=== PATIENT | male | born 1975 | race Asian ===

== ENCOUNTER → 2017-05-30 | Outpatient (CLI) | payer OTHER | LOC: FIMAGING 08:04 | PROVIDERS: ATTEND Internal Medicine | DX: E05.90 Thyrotoxicosis, unspecified without thyrotoxic crisis or storm (principal) | CPT/HCPCS: 78012; A9516 ==

== ENCOUNTER 2018-01-04 16:25 | Inpatient (IN) | payer OTHER ==
[2018-01-04] MEDS ORDERED: OLANZapine DISINTEGR 5 MG TAB PO ONE (16:57)
--- NOTE | 2018-01-04 17:14 | EDPHY ---
H & P Stated Complaint: hearing voices. off of meds Source: Patient, Family (), RN/MD Exam Limitations: Clinical condition - Personal History Current Tetanus/Diphtheria Vaccine: Unsure Current Tetanus Diphtheria and Acellular Pertussis (TDAP): Unsure - Medical/Surgical History Hx Asthma: No Hx Chronic Respiratory Disease: No Hx Diabetes: No Hx Cardiac Disease: No Hx Renal Disease: No Hx Cirrhosis: No Hx Alcoholism: No Hx HIV/AIDS: No Hx Splenectomy or Spleen Trauma: No Other PMH: schizophrenia, hypothyroid - Social History Smoking Status: Never smoked Time Seen by Provider: 01/04/18 16:57 HPI/ROS: HPI: This is a 42-year-old male who presents with Chief Complaint: hearing voices. off of meds Location: psych Quality: Psychosis Duration: Unknown Signs and Symptoms: +auditory hallucinations, no visual hallucinations, no suicidal ideation with a plan, no homicidal ideation, + paranoia Timing: Acute on chronic Severity: Severe Context: Patient has a history of schizophrenia, presents at the urging of his psychiatrist, Dr. Dale Bryan, reports that patient is psychotic and patient believes that people are living inside of in trying to control is mine. Had been on Risperdal in the past. Patient reports that he is hearing voices that are telling him what to do. He believes that they are living inside of him and controlling his mind and body. Denies drug, alcohol, tobacco use. Modifying Factors: None Comment: ROS: A comprehensive 10 system review of systems is otherwise negative aside from elements mentioned in the history of present illness. MEDICAL/SURGICAL/SOCIAL HISTORY: Medical history: Schizophrenia hypothyroidism Surgical history: Denies Social history: Never smoked. with children. Family history noncontributory. CONSTITUTIONAL: Untidy, malodorous, [place] male, awake and alert, no obvious distress HEENT: Atraumatic and normocephalic, PERRL, EOMI. Nares patent; no rhinorrhea; no nasal mucosal edema. Tympanic membranes clear. Oropharynx clear, no exudate and moist pink mucosa. Airway patent. No lymphadenopathy. No meningismus. Cardiovascular: Normal S1/S2, regular rate, regular rhythm, without murmur rub or gallop. PULMONARY/CHEST: Symmetrical and nontender. Clear to auscultation bilaterally. Good air movement. No accessory muscle usage. ABDOMEN: Soft, nondistended, nontender, no rebound, no guarding, no peritoneal signs, no masses or organomegaly. No CVAT. EXTREMITIES: 2/2 pulses, strength 5/5, no deformities, no clubbing, no cyanosis or edema. NEUROLOGICAL: no focal neuro deficits. GCS 15. SKIN: Warm and dry, no erythema. no rash. Good capillary refill. PSYCH: Fair eye contact, + flight of ideas, tangential disorganized thought process, poor insight and judgment, +auditory hallucinations, no visual hallucinations, no suicidal ideation with a plan, no homicidal ideation, + paranoia (Donna Hicks) Constitutional: Initial Vital Signs Temperature (C) 36.9 C 01/04/18 16:46 Heart Rate 82 01/04/18 16:46 Respiratory Rate 16 01/04/18 16:46 Blood Pressure 132/92 H 01/04/18 16:46 O2 Sat (%) 95 01/04/18 16:46 O2 Delivery Mode Room Air Allergies/Adverse Reactions: No Known Allergies Allergy (Unverified 01/04/18 16:46) Home Medications: Medication Instructions Recorded Levothyroxine 01/04/18 Medical Decision Making ED Course/Re-evaluation: 1715: Placed on M1 as patient is gravely disabled secondary to psychosis. Labs and UDS ordered. Given Zyprexa 5 mg. I believe patient needs inpatient psychiatric hospitalization and medication stabilization. Psychiatrist cell phone is [phone]. 1745: Labs reviewed and grossly unremarkable. Urine drug screen negative. Medically clear for mental health evaluation. 2145: Notified by [facility] that they will evaluate the patient in the a.m. 0000: End of shift. Signed over to Dr. Adler pending mental health evaluation in the morning. This patient was seen under the supervision of my secondary supervising physician. I evaluated care for this patient independently. Discussed this patient with Dr. Sotelo. (Donna Hicks) 0700: No acute events overnight. Patient signed over to Dr. Manning, 7:00 a.m. Shift change. Patient on M1 home. Acute psychosis, schizophrenic and off his medications. (Matt Adler) 0 700: Patient is signed out to me at change of shift by Dr. Adler. The patient is awaiting evaluation. Patient is stable. 835: The patient's evaluation is complete. Patient will be transferred to [address] [place] [address] Dr. Lee is accepting. (Ksenia Owen) Differential Diagnosis: Differential diagnosis includes but is not to schizophrenia, psychosis, bernard, bipolar disorder, intoxicant use. (Donna Hicks) - Data Points Laboratory Results: Laboratory Results 01/04/18 17:10 01/04/18 17:10 Medications Given: Discontinued Medications Olanzapine (Zyprexa Zydis) 5 mg PO EDNOW ONE Stop: 01/04/18 16:58 Last Admin: 01/04/18 17:29 Dose: 5 mg Departure - Departure Disposition: [facility] IP Clinical Impression: Schizo-affective psychosis Qualifiers: Schizoaffective disorder type: unspecified Qualified Code(s): F25.9 - Schizoaffective disorder, unspecified Condition: Fair Referrals: [facility] [Other] - As per Instructions
[2018-01-04 17:23] LABS: PLATELET COUNT 302 10^3/uL (150-400)
--- NOTE | 2018-01-05 07:28 | ASMTTCLDSP ---
[facility] Discharge Disposition Disposition: Answers: Admit Disposition Notes: Notes: Admit 3N. Discharge Concerns/Recommendations: Notes: In consultation with [facility] ED physician, Ksenia Owen MD and on-call psychiatrist, Bar Reese MD, both concurred that pt appears to meet 27-65 criteria requiring psychiatric hospitalization as pt appears to gravely disabled due to a mental illness condition. Pt was given the 3N prohibited belongings list while in the ED. Was patient given the Answers: Yes Inpatient Behavioral Health Prohibited Belongings List while in the ED? For inpatient Bar Reese MD admission, the following psychiatrist agreed to accept patient for admission to Behavioral Health ([facility]): Type of Hold: Answers: M1/72-hour Hold Hold initiated by: Answers: ED Physician Date Signed: 01/05/2018 07:28 AM Electronically Signed By:Elvin Hsieh
--- NOTE | 2018-01-05 07:28 | ASMTTLCEVL ---
[facility] Evaluation - Basic Information Evaluation Start Date and 01/05/2018 06:10 AM Time Hospital Status Answers: M1 Hold 72-hr M1 Hold Start Date 01/04/2018 05:15 PM and Time Patient statement Notes: Im thinking I am in heaven. I have people inside of me and they are telling me what to do. Narrative Notes: Pt is a 42 yo, , employed, Danish male with history of schizophrenia, initially self-presented to [facility] ED at the recommendation of his psychiatrist, Dr. Dale Bryan due to pt having auditory hallucinations and believing he has people inside of him that are telling him what to do. Pt was placed on M1 hold by ED provider which noted: Patient has a history of schizophrenia presents at the urging of his psychiatrist for medication non-compliance, psychosis, audio hallucinations. Patient believes he has people living inside his body controlling him. Patient is gravely disabled. Pt appeared unclean, disheveled and unkempt. He endorsed having auditory hallucinations and hearing voices from people he believes are inside his body, telling him what to do. Pt has been in [place] for the past 8 years. He grew up in [facility] [place] [facility]. He reported taking medications when he was in [facility], which suggests he has had schizophrenia for at least 8-9 years. He appeared to have thought blocking at times with occasional response delays, and at times appeared to have pressured speech. Pt denied having thoughts/desires to harm himself, however, on item 9 from the BDI, pt indicated having thoughts of suicide but would not act upon those thoughts. He endorsed feeling distress from hearing the voices. Diagnosis History Notes: Schizophrenia. Prior suicide attempts Notes: Pt denied any past history of suicide attempts. Prior hospitalizations Notes: Pt denied any previous history of psychiatric hospitalizations. Treatment Responses Notes: Referred by outpatient psychiatrist for medication non-compliance, hearing voices, has history of schizophrenia. History of violence Notes: Pt denied any history of aggression/violence. Therapist: None. Psychiatrist: Dr. Dale Bryan. Medications (name, dosage, route, freq uency) Notes: None. Pt reportedly had been taking Risperdal in the past. Pt stated he took medications when he was in [facility]. Pt was administered Zyprexa Zydis 5 mg po at 1729 hrs. Allergies/Reaction Notes: NKDA. Sleep Notes: Pt reported he typically gets 8 hours of sleep per night. Appetite Notes: Pt reported that his appetite is good. Medical/Surgical history Notes: Noncontributory. Substance use history (frequency, intensity, his tory, duration) Notes: Noncontributory. Pt denied any history of alcohol, marijuana or other illicit substance use. BAL zero. UDS results were negative for all tested substances. Family composition Notes: Parents reside in [facility] [place] [facility]. He has a sister also living in [place] [facility] [place] [facility]. He reported he has a brother who lives in [place]. Need for family Answers: Yes participation in patient's care Family psychiatric/substance abuse history Notes: None reported. Developmental history Notes: Pt reported being born and raised in [place] [place] [facility]. He moved to the [facility] about 8 years ago. He denied any childhood history of TBIs, LOC or concussions. He denied any childhood history of physical, emotional or sexual abuse/trauma. Abuse concerns Answers: None Marital status/children Notes: Pt is to his , Jane [phone] for the past 10 years. They have two daughters, ages 3 and 8 yo. Living situation Notes: Pt resides with and two daughters in an apartment in [place]. Sexual history/orientation Notes: Not active. Heterosexual. Peer support/family strengths Notes: Pt identified that his and brother are his supports. Education level/history Notes: Pt reported obtaining a bachelors degree in sociology from [facility] [employer] in 2002. 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 Notes: None. Legal Notes: Pt denied any arrest/legal history. Holiness/Spiritual Notes: Pt reported he is Caodaism. Leisure Notes: Pt reported he enjoys the internet. Collateral Notes: , Jane. Patient's strengths Answers: Honest (Please select at least TWO strengths): Motivated for Treatment Supportive Family Willingness [facility] Evaluation - Mental Status Exam Appearance: Answers: Unclean Unkempt Disheveled Eye Contact: Answers: Good/Direct Mood: Answers: Depressed Sad Affect: Answers: Calm Congruent w/ Mood Distracted Nervous Sad Behavior: Answers: Cooperative Anxious Passive Restless Suspicious Wandering Speech: Answers: Illogical Unclear Coherent Delayed Dramatic Perseverating Pressured Rapid Thought Process: Answers: Disorganized Oriented Alert Distracted Flight of Ideas Loose Associations Insight: Answers: Fair Judgement: Answers: Fair Manic Signs/Symptoms Answers: Distractibility Pressured Speech Depression Answers: Difficulty Concentrating Signs/Symptoms: Diminished Interest Diminished Pleasure Psychomotor Agitation Sad Mood Hallucinations: Answers: Auditory Delusions: Answers: Being Controlled Current Stage of Change Answers: Contemplation Pt reported to have Answers: No suicidal/self-injuring ideation/behavior? Pt reported to be making Answers: No suicidal/self-injuring threats? Pt reported to have Answers: No aggression/assault ideation/behavior? Pt reported to be making Answers: No aggression/assault threats? Pt exhibits inability to Answers: Yes care for self/grave disability? Ideation/behavior is Answers: Yes chronic? Patient has a specific Answers: No plan? Pt has access to means to Answers: No execute the plan? Ideation involves Answers: No serious/lethal intent? Ideation has Answers: Yes delusional/hallucinatory content? History of Answers: No suicidal/self-injuring ideation, behavior, or threats? History of Answers: No aggressive/assaultive ideation, behavior, or threats? History of serious Answers: No physical harm to self/others while in treatment setting? [facility] Evaluation - Suicide/Homicide Risk Suicide Risk Factors: Answers: < 20 or > 40 Years of Age Anhedonia Command Hallucinations Inadequate Social Support Lack of Social Support Psychotic Disorder Schizophrenia Homicide/violence risk Answers: Command Hallucinations factors: Current Suicidal Answers: No Ideation? Current Suicidal Ideation Answers: No in the Past 48 Hours? Current Suicidal Ideation Answers: No in the Past Month? Current Suicidal Answers: No Ideation, Worst Ever? Suicide Internal Answers: Purvi with Stress Protective Factors: Holiness Beliefs Suicide External Answers: Responsibility to Protective Factors: Children Ranking of patient's Answers: Low suicidal risk: Ranking of patient's Answers: Low homicidal risk: [facility] Evaluation - Wrap-up BDI Total Score: 40 BDI Question #2 Score: 3 BDI Question #9 Score: 1 BSS Total Score: 20 AXIS I Diagnosis (include DSM-V and ICD-10 codes), must also be entered in [employer], which is the source of truth. Notes: In consultation with [facility] ED physician, Ksenia Owen MD and on-call psychiatrist, Bar Reese MD, both concurred that pt appears to meet 27-65 criteria requiring psychiatric hospitalization as pt appears to gravely disabled due to a mental illness condition. Pt was given the 3N prohibited belongings list while in the ED. Evaluation End Date and 01/05/2018 07:25 AM Time (HH:MADELINE): Date Signed: 01/05/2018 07:27 AM Electronically Signed By:Elvin Hsieh
--- NOTE | 2018-01-05 09:21 | GCON ---
DATE OF CONSULTATION: 01/05/2018 REFERRING PHYSICIAN: Joshua Lala MD REASON FOR CONSULTATION: Medical evaluation. PRIMARY PSYCHIATRIST: Dr. Nobles in [facility]. HISTORY OF PRESENT ILLNESS: A 42-year-old Japanese speaking male with schizophrenia diagnosed 3 years ago. At that time, he says "a power took over me and controlled all my thoughts". He was started on medications for 2 years and doing very well. He has tried contacting his psychiatrist in [place] [facility] without success, thus been off psychiatric medications for 3 months. The other night, he had a dream that someone was choking him and making him fly. No suicidal or homicidal ideations. He has not slept for 5 days. He has had normal p.o. intake. c/o of some nausea yesterday, but resolved. states that his psychiatric medications made him very tired and elevated his thyroid function tests. REVIEW OF SYSTEMS: I completed a 10-point review of systems, negative, except as in HPI. PAST MEDICAL HISTORY: Schizophrenia, thyroiditis, secondary to psych medications, thyroiditis uptake scan in May 2017 PAST SURGICAL HISTORY: None. SOCIAL HISTORY: Lives with his and 2 kids. He is from [place], has been here for 8 years. 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 FAMILY HISTORY: His parents are alive [facility] and healthy. HOME MEDICATIONS: Levothyroxine. ALLERGIES: None. PHYSICAL EXAMINATION: VITAL SIGNS: Temperature 36.8, blood pressure 125/85, heart rate in 70s, respirations 16, 97% on room air. GENERAL: He is unkempt, mildly disheveled. HEENT: PERRLA. Moist mucous membranes. CV: Regular rate and rhythm. LUNGS: Clear. ABDOMEN: Soft, nontender. : No Chin. MUSCULOSKELETAL: 5/5 upper and lower extremity strength. NEURO: 2 through 12 intact. PSYCH: Alert and oriented x3. Pressured speech. SKIN: Warm, dry. No rash. LABORATORY DATA: WBC 12, hemoglobin 16, hematocrit 44, platelets 302. U-tox is negative. Sodium 139, potassium 3.4, chloride 103, carbon dioxide 22, BUN is 8, creatinine 0.8, glucose is 128. Labs 09/12/2017 show TSH less than 0.015 , repeat in November of 6.560. ASSESSMENT/PLAN: 1. Schizophrenia with acute psychosis: from medication noncompliance: transfer to Behavioral Health to be managed by psychiatric team. concerned about psychiatric medications affecting his sleep, as well as thyroid function. 2. Leukocytosis: mild, denies infectious symptoms. Afebrile. Suspect stress reaction. 3. History of thyroiditis: TSH is now 6.5 with a normal free T4 in November. Levothyroxine. 4. Diet: Regular. 5. Deep venous thrombosis prophylaxis: Ambulating. Thank you for this consultation. Please call if any questions. /[id number]/MODL MTDD
--- NOTE | 2018-01-05 13:38 | ASMTBHMTP ---
Master Treatment Plan Master Treatment Plan Answers: Impaired Reality for: Date: 01/05/2018 Diagnosis on Admission: Schizophrenia 295.90 Expected length of stay: 3-5 Days Reason for admission: Notes: Per [facility] evaluation - Pt. is a 42 year old, , employed, Greek male with history of schizophrenia, initially self-presented to [facility] ED at the recommendation of his psychiatrist, Dr. Dale Bryan due to pt. having auditory hallucinations and believe he has people inside of him that are telling him what to do. Pt. was placed on M1 hold by ED provider which noted: Patient has a history of schizophrenia presents at the urging of his psychiatrist for medication non-complinace, psychosis, audio hallucinations. Patient believes he has people living inside his body controlling him. Patient is gravely disabled. Pt. appeared unclean, disheveled, and unkempt. He endorsed having auditory hallucinations and hearing voices from people he believes are inside his body, telling him what to do. Patient's stated presenting problems: Notes: An entity is controlling him from inside his body, telling him what to do. Patient's goals for treatment: Notes: None Patient's strengths: Notes: Everything's good Identify supports outside of hospital: Notes: Discharge criteria: Notes: Psychotic symptoms will be reduced or eliminated with return to baseline functioning in affect, thinking and behavior prior to discharge. 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 Master Treatment Plan Required Signatures Psychiatrist signature: Answers: Psychiatrist: RN on-shift signature: Answers: RN: Patient signature: Answers: Patient: Date Signed: 01/05/2018 01:37 PM Electronically Signed By:Rafaela Licona
--- NOTE | 2018-01-05 17:23 | BAPA ---
DATE OF SERVICE: 01/05/2018 CHIEF COMPLAINT: "I just need to see a farm specialist about what is going on." HISTORY OF PRESENT ILLNESS: Patient is a 42-year-old [place] man who presented to the emergency dep artment with his family due to worsening psychotic symptoms. He has a history of schizophrenia and a pparently had taken some form of medication prescribed by a psychiatrist in [facility] for the past 3 year s. He states he ran out and was unable to get this refilled in the [place] and stopped taking the medic ation about a month ago. He cannot remember the name of this and his also does not know the nam e. He states it is a standard prescription medicine and not something like an herb or local concocti on. He states that his symptoms began sometime in the past, but that he has been consistently treate d for them for the past 3 years. He states that during that time he has had no problems. His primar y symptoms are persistent auditory hallucinations where he will hear commanding voices telling him "b oth good things and bad things." He states that there is one voice that will "tell me I am the best, and I am the most powerful" and another voice that "tells me I should just ." He states also franki t he has a feeling of increased energy, "like an electrical current surging through my body." He sta anita that this has been worsening recently and that he feels like he is possessed by multiple individu als. He states that he feels like this is their psychic energy within his body and that it is their voices that he hears. He repeated this story to the [facility] assembler for puller over hand in the emergency department and wa s placed on an M1 hold and admitted for further evaluation. The patient is unaware if he has had a p revious diagnosis, but the record indicates that he has been diagnosed with schizophrenia. The patie nt denies any disturbances in his appetite or sleep recently. The patient's is not available fo r corroboration at this time. The patient denies having a psychiatrist, but the chart indicates that he sees a Dr. Dale Bryan. It is unclear where this person is, though he again states he does not have a local provider. PAST PSYCHIATRIC HISTORY: Largely as above. Patient denies ever being in a psychiatric hospital [facility]. The patient states he has only taken the one medicine from [facility] for the past 3 years. The pat anita did receive Zyprexa Zydis in the emergency department at 1729 hours yesterday. ALLERGIES: No known medical allergies. CURRENT MEDICINES: None. PAST MEDICAL HISTORY: Noncontributory. SOCIAL HISTORY: Patient is and has 2 children. He also has a brother who lives in [place] a nd is one of his primary supports. 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 He denies any specific stressors. Patient denies any rosado bstance use. Patient states that he practices Hoahaoism pentecostalism. FAMILY HISTORY: Patient denies any family history of mental illness. ADMISSION LABORATORY: CBC shows a white count up at 12.14, otherwise normal. Serum chemistries are normal. The urine drug screen is negative for all substances. Alcohol is less than detectable. MENTAL STATUS EXAMINATION: Reveals a disheveled, poorly groomed male, sitting in hospital bed [facility]. He is interactive and somewhat animated. He makes fairly wild gestures with his ar ms and hands when he is describing the tone and content of these hallucinations. He makes prolonged and intense eye contact. His affect is constricted, stable, and appropriate. His mood is described as "not good." His thought process is somewhat tangential as he is describing these subjective and i diosyncratic thought processes, though he is able to give goal-directed answers to questions without any difficulty. His thought content reveals grandiose and paranoid delusions and prominent auditory hallucinations. He is alert and oriented to person, place, time, and situation, and his sensorium is clear. There is no evidence of delirium. His intellect appears to be at least average as evidenced by his educational and occupational history, his fund of knowledge, and vocabulary. He denies any t houghts of suicide, homicide, or violence. His insight and judgment appear to be good. IMPRESSION: Schizophrenia, paranoid type, chronic with acute exacerbation; chronic illness; recurren t illness; medication noncompliance. Patient is a pleasant 42-year-old male who presents at this time with what appears to be an acute exa cerbation of his chronic psychotic disorder in the absence of medication. It is unclear to me whethe r he really was treated with medicine from [facility] or whether he was receiving some other medicine here in the [place]. His told him on the phone as I was sitting there that she would try to f ind the name of the medication so that we could begin treatment with that. PLAN: 1. [facility] hold. 2. Monitor for any behavioral disturbances and provide additional information in regard to clinical impression. 3. We will begin treatment with Risperdal as he has reportedly taken this before. I discussed this with him including the risks, benefits, and alternatives, and he is agreeable to proceed until we can find the name of the other medicine. 4. We will work with the patient and his to develop an outpatient plan that will include psychi atric providers and allow him to be compliant with medicines in the future. 5. Estimated length of stay: 5-7 days. /[id number]/MODL
[2018-01-05] MEDS ORDERED: ACETAMINOPHEN 325 MG TAB PO PRN (20:30)
[2018-01-05] MEDS ORDERED: MAGNESIUM HYDROXIDE 30 ML UDCUP PO PRN (20:30)
[2018-01-05] MEDS ORDERED: OLANZapine DISINTEGR 5 MG TAB PO PRN (20:31)
[2018-01-05] MEDS ORDERED: RISPERIDONE 1 MG ODT TAB PO SCH (21:00)
--- NOTE | 2018-01-06 09:22 | PDMN ---
Medical Necessity Medical necessity: Pt meets inpt criteria per MD order and [facility] B-[id number], Schizophrenia Spectrum Disorders, Adult: Inpatient Care. 42 y/o admitted on M1 Hold with schizophrenia, paranoid type, chronic w/acute exacerbation requiring inpt psychiatric hospitalization.
--- NOTE | 2018-01-06 14:59 | ASMTCMCOM ---
CM Note CM Note Notes: Pt. reports feeling "good". Pt. stated he "sleeps okay". Pt. reports eating well and keeping busy by "sleeping, walking and TV". Pt. stated he is not taking any medications currently. Pt. reports attending groups. Pt. stated denied SI, HI, VH and paranoia. Pt. reports AH, adding "talking less", but are still present. Pt. reports he doesn't know when he will discharge, but feels "okay" about staying over the weekend. Pt. presents as alert, calm, good eye contact, polite, and with a friendly demeanor. Staff report pt. sleeping 10 hours. Pt. attending the treatment team meeting this morning. Date Signed: 01/06/2018 02:58 PM Electronically Signed By:Rafaela Licona
--- NOTE | 2018-01-06 15:17 | SOAPPROG ---
SOAP Progress Note Assessment/Plan: Assessment: Plan: 01/06/18 15:19 Improved on Risperdal. Will increase to 2mg, monitor. Subjective: Pt seen, discussed with staff and his . She brings in the name of his previous medication. It is a combination drug with trifluperazine and trihexyphenidyl, brand name is Trazine-H. He has also been given Risperdal in the past with good effect. His last dose was 3mg. He is interviewed in Treatment Team meeting and states he is feeling "much better." Reports the "current" of energy has decreased and the voices are quieter. Compliant with all meds and therapies. Tolerating Risperdal well. Objective: Vital Signs Temp Pulse Resp BP Pulse Ox 36.9 C 120 H 14 116/73 97 01/06/18 06:00 01/06/18 06:00 01/06/18 06:00 01/06/18 06:00 01/06/18 06:00 MSE: Calm, though still animated. Speaks in a loud, abrupt voice, usually with dramatic inflection and hand gestures. Unclear whether this is cultural. Affect is constricted, somewhat anxious. Mood is "better." TP is generally linear, though is somewhat inattentive. TC reveals continued AH's, some command in nature, though he states they are "quieter." No SI. - Time Spent With Patient Time Spent With Patient: 25" ICD10 Worksheet Patient Problems: Problems Problem Status Onset Schizo-affective psychosis Acute
[2018-01-06] MEDS: RISPERIDONE 1 MG ODT TAB PO SCH (20:17)
--- NOTE | 2018-01-07 16:12 | SOAPPROG ---
SOAP Progress Note Assessment/Plan: Assessment: Per Dr. Reese's note: Improved on Risperdal. Will increase to 2mg, monitor. Subjective: Pt seen, discussed with staff and his . She brings in the name of his previous medication. It is a combination drug with trifluperazine and trihexyphenidyl, brand name is Trazine-H. He has also been given Risperdal in the past with good effect. His last dose was 3mg. He is interviewed in Treatment Team meeting and states he is feeling "much better." Reports the "current" of energy has decreased and the voices are quieter. Compliant with all meds and therapies. Tolerating Risperdal well. Current Plan: 01/07/18 16:09 1. Patient denies any CAH, but states the "entity" is still present, but "less talkative." 2. Patient slept 9 hrs last night, and has napped off/on during day. 3. No complaints of SE's from med increase. No signs of stiffness, rigidity, shuffling or abnormal movements. Subjective: Patient has less energy today. Slept 9 hrs last night and took naps during day. He denies CAH and reports voices in his head which he calls the "entity" are "less talkative." He agrees to stay through weekend and discharge likely early next week. Objective: Vital Signs Temp Pulse Resp BP Pulse Ox 36.8 C 100 14 120/78 96 01/07/18 06:00 01/07/18 06:00 01/07/18 06:00 01/07/18 06:00 01/07/18 06:00 MSE: Affect: Less labile Mood: "Better" TP: Mostly goal-directed TC: Denies any SI/HI Perception: Still reports AH, but has improved Insight/Judgment: Improving - Time Spent With Patient Time Spent With Patient: 15" - Pending Discharge Pending Discharge Within 24 Hours: No Pending Discharge Within 48 Hours: No ICD10 Worksheet Patient Problems: Problems Problem Status Onset Schizo-affective psychosis Acute
[2018-01-07] MEDS: RISPERIDONE 1 MG ODT TAB PO SCH (20:09)
--- NOTE | 2018-01-08 14:52 | ASMTCMCOM ---
CM Note CM Note Notes: Pt. reports feeling "great". Pt. stated he slept "okay". Pt. reports the medications are making things "little better". Pt. stated he is still hearing command hallucinations, but they are "little bit". Pt. denies SI, HI, VH and paranoia. Pt. stated he is eating well and attending groups. Pt. stated he might discharge tomorrow. Pt. stated he wants to return to work as soon as he can. Pt. reports no issues while on the unit. Pt. stated his can pick him up upon discharge. Pt. stated he is able to fill and take his prescriptions. Pt. stated he will be able to get himself to his follow up appointments. Pt. stated the best time for him to discharge on Tuesday would be around 12pm. Pt. stated he is willing to attend the treatment team meeting. Pt. presents as alert, calm, friendly, good eye contact and polite. Staff report pt. 10 hours and being medication complaint. Date Signed: 01/08/2018 02:51 PM Electronically Signed By:Rafaela Licona
--- NOTE | 2018-01-08 16:03 | SOAPPROG ---
SOAP Progress Note Assessment/Plan: Assessment: Per Dr. Reese's note: Improved on Risperdal. Will increase to 2mg, monitor. Subjective: Pt seen, discussed with staff and his . She brings in the name of his previous medication. It is a combination drug with trifluperazine and trihexyphenidyl, brand name is Trazine-H. He has also been given Risperdal in the past with good effect. His last dose was 3mg. He is interviewed in Treatment Team meeting and states he is feeling "much better." Reports the "current" of energy has decreased and the voices are quieter. Compliant with all meds and therapies. Tolerating Risperdal well. Current Plan: 01/07/18 16:09 1. Patient denies any CAH, but states the "entity" is still present, but "less talkative." 2. Patient slept 9 hrs last night, and has napped off/on during day. 3. No complaints of SE's from med increase. No signs of stiffness, rigidity, shuffling or abnormal movements. 01/08/18 16:00 1. Patient reports no AH today. 2. Slept 10 hrs 3. Patient had been taking levothyroxine at home, but not sure about dose. His most recent TSH was 6.560 on 11/24/17. His Free T4 was 0.82. Will order repeat TSH tomorrow to decide how much levothyroxine he needs. 4. Likely d/c this week. Subjective: Patient does not report any AH today. He was pleased that his came to visit today. Feels ready to go home. Objective: Vital Signs Temp Pulse Resp BP Pulse Ox 36.6 C 83 15 118/75 95 01/08/18 06:00 01/08/18 06:00 01/08/18 06:00 01/08/18 06:00 01/08/18 06:00 MSE: Affect: Euthymic Mood: "OK" TP: Mostly linear, tangential at times TC: Denies any SI/HI, no paranoia Perception: Denies any AH today Insight/Judgment : Improving - Time Spent With Patient Time Spent With Patient: 15" - Pending Discharge Pending Discharge Within 24 Hours: No Pending Discharge Within 48 Hours: No ICD10 Worksheet Patient Problems: Problems Problem Status Onset Schizo-affective psychosis Acute
[2018-01-08] MEDS: RISPERIDONE 1 MG ODT TAB PO SCH (20:26)
--- NOTE | 2018-01-09 13:21 | SOAPPROG ---
SOAP Progress Note Assessment/Plan: Assessment: Plan: 01/06/18 15:19 Improved on Risperdal. Will increase to 2mg, monitor. 01/09/18 13:22 Psychosis: Continued improvement. Will CCM. Continue d/c planning. Agree with need for solid f/u prior to d/c. CC working on it. Subjective: Pt seen, discussed with staff, chart reviewed. He reports decreased AH's over the WE. Notes good effect from Risperdal, no SE's. Asks about d/c plan. He continues to recognized the importance of a good f/u plan. States he wants to wait until he has an appointment with a psychiatrist to leave. He is noted to continued to isolate in his room, internally focused. Less agitated, better groomed. Objective: Vital Signs Temp Pulse Resp BP Pulse Ox 36.6 C 108 H 16 121/77 H 96 01/09/18 06:00 01/09/18 06:00 01/09/18 06:00 01/09/18 06:00 01/09/18 06:00 MSE: Well-groomed, pleasant and coop. Affect is brighter, less constricted. Mood is "good." TP is generally linear. TC reveals continued AH's, though less intense and less intrusive. Denies SI/HI/. - Time Spent With Patient Time Spent With Patient: 15" ICD10 Worksheet Patient Problems: Problems Problem Status Onset Schizo-affective psychosis Acute
--- NOTE | 2018-01-09 13:52 | ASMTBHDC ---
Notes Note: Notes: CC confirmed with [facility] that client will be a "therapy only client," and will have to get medications possibly through [facility]. Follow up with: [facility] [address] [place] [address] Intake for Therapy ONLY: January 19 () at 9:45am with [facility] (Medication) [facility] [place] [phone] Fax: [phone] WALK- IN TIME & DATES HOURS OF OPERATION [facility] Opens Closed for Lunch [facility] Closes Tuesday 8am 1-2pm 5pm Tuesday 8am 1-2pm 8pm Tuesday 8am 1-2pm 8pm 8am 1-2pm 8pm Tuesday 8am 1-2pm 5pm Date Signed: 01/09/2018 01:33 PM Electronically Signed By:Ankur Álvarez
--- NOTE | 2018-01-09 15:41 | ASMTCMCOM ---
CM Note CM Note Notes: Pt presents in [facility] cooperative aaox3 denies si/hi ah/vh states the hallucinations and "thinkingmuch better" Anticipatory dc to community with end of the week Date Signed: 01/09/2018 03:31 PM Electronically Signed By:Komal Vila
[2018-01-09] MEDS: RISPERIDONE 1 MG ODT TAB PO SCH (20:32)
[2018-01-10 06:29] VITALS: BP 121/64
--- NOTE | 2018-01-10 08:25 | ASMTBHDC ---
Notes Note: Notes: CC confirmed client's discharge follow up care: Follow up with: [facility] [address] [place] [address] Intake for Therapy ONLY: January 19 () at 9:45am with [facility] (Medication)YOU NEED TO GO HERE [address] [place] [phone] Fax: [phone] WALK- IN TIME & DATES HOURS OF OPERATION [facility] OpensClosed for LunchClinica Closes [id number] Date Signed: 01/10/2018 08:24 AM Electronically Signed By:Ankur Álvarez
== END 2018-01-10 12:42 | disposition home or self-care (01) | DRG 885 ==
LOC: BBEH 01-05 09:18
PROVIDERS: ADMIT Psychiatry & Neurology Psychiatry; ATTEND Psychiatry & Neurology Psychiatry
DX: F20.9 Schizophrenia, unspecified (principal); Z91.14 Patient's other noncompliance with medication regimen
CPT/HCPCS: 80305; G0480